=== PATIENT | female | born 1960 | race Caucasian/White ===

== ENCOUNTER 2017-09-13 12:13 | Emergency (ER) | payer MEDICAID ==
[2017-09-13 12:33] LABS: % BASOPHILS 0.3 % (0.0-2.0); % EOSINOPHILS 1.9 % (0.0-5.0); % LYMPHOCYTES 26.6 % (20.0-50.0); % MONOCYTES 9.6 % (2.0-10.0); % NEUTROPHILS 61.6 % (40.0-80.0); HEMATOCRIT 38.7 % (41.0-60); HEMOGLOBIN 12.9 gm/dL (12-16); MEAN CORPUSCULAR HEMOGLOBIN 29.6 pg (27.0-31.0); MEAN CORPUSCULAR HGB CONC 33.2 pg (28.0-36.0); MEAN PLATELET VOLUME 8.5 fl; NEUTROPHILE ABSOLUTE 4.6 Th/cmm (1.8-8.0); PLATELET COUNT 228 Th/cmm (150-400); RED BLOOD COUNT 4.35 Mil/cmm (3.80-5.10); RED CELL DISTRIBUTION WIDTH 15.3 % (11.5-20.0); WHITE BLOOD COUNT 7.3 Th/cmm (4.8-10.8)
[2017-09-13 12:49] LABS: INR 0.96 (0.5-1.4)
[2017-09-13 12:57] LABS: ALB/GLOB RATIO 1.4 (1.0-1.8); ALKALINE PHOSPHATASE 84 U/L (34-104); ANION GAP 9.6 (7.0-16.0); BILIRUBIN,TOTAL 0.4 mg/dL (0.3-1.0); BUN - UREA NITROGEN 20 mg/dL (7-25); CALCIUM SERUM 9.5 mg/dL (8.6-10.3); CARBON DIOXIDE 25.4 mEq/L (21.0-31.0); CHLORIDE 105 mEq/L (98-107); CHOLESTEROL 108 mg/dL (<200); CREATININE - SERUM 0.8 mg/dL (0.6-1.2); GLUCOSE 96 mg/dL (70-105); SGOT 13 U/L (13-39); SGPT/ALT 13 U/L (7-52); SODIUM SERUM 136 mEq/L (136-145); TRIGLYCERIDES 125 mg/dL (<150)
--- NOTE | 2017-09-13 13:00 | Diagnostic Imaging Report ---
CHEST X-RAY: AP view INDICATION: Pneumonia COMPARISON: None Chronic lung changes are seen with areas of scarring. There appear be postsurgical changes along the left hemithorax. Few nodular infiltrates of the left mid and left upper lung zone are noted. Left basal pleural thickening is noted. Heart size is normal. Degenerative changes of the spine are noted. IMPRESSION: Marked chronic lung changes with areas of scarring. Additional superimposed nodular infiltrates of the left mid to left upper lung zone are noted. Findings favor infectious process. Neoplastic processes is less likely, however, short-term follow-up, including short-term follow-up CT of the chest is recommended for further assessment.
--- NOTE | 2017-09-14 09:23 | ED Physician Chart ---
ED Chief Complaint/HPI - Patient Information Date Seen:: 09/13/17 Time Seen:: 12:30 Chief Complaint:: Depression History of Present Illness:: 57 yo female was a resident at [facility]. She was brought to ER for evaluation of depression due to the fact that she had sent text messages to her mother about possible "killing self". Denies trauma history. Allergies:: Allergies Allergy/AdvReac Type Severity Reaction Status Date / Time hydrochlorothiazide Allergy Verified 09/13/17 12:20 Penicillins Allergy Verified 09/13/17 12:20 pseudoephedrine Allergy Verified 09/13/17 12:20 CONTRAST DYE Allergy Uncoded 09/13/17 12:21 ED Review of Systems - Review of Systems General/Constitutional: No fever, No chills Skin: No skin lesions Head: No headache Eyes: No loss of vision ENT: No nasal drainage Neck: No neck pain Cardio Vascular: No chest pain Pulmonary: No SOB GI: No nausea, No vomiting G/U: No frequency Musculoskeletal: No bone or joint pain Psychiatric: Depression ED Past Medical History - Past Medical History Past Medical History: Dyslipidemia, Other (abnormal posture) Social History: Alcohol Psychiatricy History: Depression, Other (alcohol abuse, anxiety) Family Medical History - Family Member Mother History Unknown: Yes ED Physical Exam - Physical Examination General/Constitutional: Awake, Alert Head: Atraumatic Eyes: PERRL, EOMI Skin: No skin lesions ENMT: Nasal exam nl Neck: No nuchal rigidity Respiratory: Clear to Auscultation, No Wheeze/Rhonchi/Rales Cardio Vascular: RRR, No murmur, gallop, rubs, NL S1 S2 GI: No tenderness/rebounding/guarding Extremities: normal strength in all extremities Neuro/Psych: No focal deficits ED Labs/Radiology/EKG Results - Lab Results Results: Laboratory Tests 09/13/17 09/13/17 09/13/17 12:28 12:28 12:28 WBC 7.3 RBC 4.35 Hgb 12.9 Hct 38.7 L MCV 89.0 MCH 29.6 MCHC Differential 33.2 RDW 15.3 Plt Count 228 MPV 8.5 Neutrophils % 61.6 Lymphocytes % 26.6 Monocytes % 9.6 Eosinophils % 1.9 Basophils % 0.3 PT INR PTT (Actin FS) Sodium 136 Potassium 4.0 Chloride 105 Carbon Dioxide 25.4 Anion Gap 9.6 BUN 20 Creatinine 0.8 Est GFR ( Amer) > 60.0 Est GFR (Non-Af Amer) > 60.0 BUN/Creatinine Ratio 25.0 Glucose 96 Calcium 9.5 Total Bilirubin 0.4 AST 13 ALT 13 Alkaline Phosphatase 84 Troponin I B-Natriuretic Peptide 90.3 Total Protein 6.5 Albumin 3.8 Globulin 2.7 Albumin/Globulin Ratio 1.4 Triglycerides 125 Cholesterol 108 LDL Cholesterol Direct 60 L HDL Cholesterol 31 09/13/17 09/13/17 12:28 12:28 WBC RBC Hgb Hct MCV MCH MCHC Differential RDW Plt Count MPV Neutrophils % Lymphocytes % Monocytes % Eosinophils % Basophils % PT 10.0 INR 0.96 PTT (Actin FS) 26.5 Sodium Potassium Chloride Carbon Dioxide Anion Gap BUN Creatinine Est GFR ( Amer) Est GFR (Non-Af Amer) BUN/Creatinine Ratio Glucose Calcium Total Bilirubin AST ALT Alkaline Phosphatase Troponin I < 0.01 L B-Natriuretic Peptide Total Protein Albumin Globulin Albumin/Globulin Ratio Triglycerides Cholesterol LDL Cholesterol Direct HDL Cholesterol ED Assessment - Assessment General Assessment: 57 yo female has depression. Critical Care Time: 30 min Excludes all billable procedures: Yes This condition life threatening/high prob of deterioration: No Assessment/Comments:: CBC, CMP: unremarkable Psych evaluation cleared the patient to be discharged home. ED Septic Shock - . Is Septic Shock (SBP<90, OR Lactate>4 mmol\\L) present?: No ED Reassessment (Disposition) - Reassessment Reassessment Condition:: Improved - Aftercare/Follow up Instructions Aftercare/Follow-Up Instructions:: Counseled pt regarding lab results/diagnosis & need follow up, Refer to Discharge Instructions - Patient Disposition Discharge/Transfer:: Home ED Discharge Plan - Patient Disposition Admit/Discharge/Transfer: PT DISCHARGED HOME Condition at Disposition: Improved Instructions: Depression, Adult, Psychosis Additional Instructions: Pt. to back to [facility]. Follow-up with psychiatrist.
== END 2017-09-13 14:37 | disposition home or self-care (01) ==
LOC: ER 12:13
DX: F32.9 Major depressive disorder, single episode, unspecified (principal); E78.5 Hyperlipidemia, unspecified
CPT/HCPCS: 36415-UA; 71010-TC; 80053-TC; 80061-TC; 83880-TC; 84484-TC; 85025-TC; 85610-TC; 93005; Z7502